=== PATIENT | female | born 1995 | race Two or more races ===

== ENCOUNTER 2025-03-12 01:43 | Emergency (ER) | payer SELFPAY ==
[2025-03-12 01:55] VITALS: BP 126/88
[2025-03-12 02:41] VITALS: BMI 23.4
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
--- NOTE | 2025-03-12 05:04 | ED.MUSCINJ ---
HPI-Injury
General
Chief Complaint: Fall
Time Seen by Provider: 03/12/25 03:27
History of Present Illness-Injury
Initial Injury comments:
Note:
CHIEF COMPLAINT(S)
Head injury from fall
HISTORY OF PRESENT ILLNESS
The patient is a 29-year-old female who presented to the emergency department after sustaining a fall. The patient reports experiencing the fall while putting on socks. The fall resulted in her landing on her face. She reports being scared and
experiencing a headache but denies any blurry vision. During the encounter, the patient confirmed consuming alcohol prior to the fall.
PLAN
A CT scan of the patients head, neck, and face will be performed to assess for any potential injuries arising from the fall.
PHYSICAL EXAM
General: Patient is responsive and alert.
Skin: No visible external injuries reported in the conversation.
Details regarding specific findings within systems such as neurological or musculoskeletal were not discussed in the provided conversation.
DIFFERENTIAL DIAGNOSIS
The Differential Diagnosis includes, in no particular order and is not limited to:
1. Acute alcohol intoxication
2. Concussion
3. Facial fracture
4. Intracranial hemorrhage
5. Cervical spine injury
6. Postural instability
7. Epileptic seizure
8. Hyponatremia due to alcohol consumption
9. Vestibular dysfunction
10. Orthostatic hypotension
Disposition:
SUMMARY OF ENCOUNTER
The patient is a 29-year-old female who presented to the emergency department after experiencing a fall due to alcohol consumption. She landed on her face but did not lose consciousness and reported no blurry vision or loose teeth. A CT scan was
done to evaluate potential head, face, and neck injuries, which returned negative except for noting chronic dental disease.
DISPOSITION
Discharge
ASSESSMENT
The fall appears to have been caused by acute alcohol intoxication, with no serious injuries identified after imaging.
PLAN
The patient is to be discharged home with her significant other.
INDEPENDENT REVIEW OF LABS AND INTERPRETATION OF TESTS
- My independent interpretation of the CT scan of the head showed no acute injuries.
- My independent interpretation of the CT scan of facial bones was negative for fractures.
- My independent interpretation of the CT scan of the cervical spine showed no injury.
PATIENT EDUCATION AND COUNSELING
The patient was informed about the importance of avoiding alcohol consumption, especially in situations that might lead to falls or injuries.
FOLLOW-UP INSTRUCTIONS
The patient should follow up with a primary care doctor to monitor chronic dental disease and assess any progression.
MEDICAL DECISION MAKING
- Complexity of Data Reviewed: Chronic conditions affecting care include the patients chronic dental disease. Differential Diagnosis includes acute alcohol intoxication, concussion, facial fracture, intracranial hemorrhage, cervical spine injury,
postural instability, epileptic seizure, hyponatremia due to alcohol consumption, vestibular dysfunction, and orthostatic hypotension.
- Data: Category 1: Non-emergency department records reviewed validated the patients chronic dental disease as noted on the CT scan.
- Risk: Consideration of Admission/Observation: Escalation of care including admission/observation was considered given the complexity and risk of the patients presenting complaint, exam findings, and/or their underlying comorbidities. However,
ultimately I feel the patient is safe for outpatient management with close follow up. Reasoning: Work-up reassuring, does not reveal any acute life/organ threatening processes, patients symptoms well controlled upon reevaluation, reexamination is
reassuring, vitals are stable, patient agreeable with discharge, reliable for follow-up.
DIAGNOSIS
- Acute alcohol intoxication (F10.120)
- Fall due to intoxication (W19)
- Chronic dental disease (K08.9)
Phy Exam
Physical Exam
Physical Exam:
.
Injury Course
Orders/Labs/Results
Orders:
Orders
03/12/25 03:34
CT Cervical Spine W/o Iv Contr Urgent
Comment:
Reason For Exam: fall, (+)ETOH, Sig fac trauma
CT Facial Bones W/o Iv Contras Urgent
Comment:
Reason For Exam: fall, (+)ETOH, Sig fac trauma
CT Head W/o Iv Contrast Urgent
Comment:
Reason For Exam: fall, (+)ETOH, Sig fac trauma
*Pulse Oximetry
SaO2: 96
Oxygen Mode of Delivery: Room air
Patient hypoxic: no
*Critical Care Note
Total Time (30-74mins, 75-104mins- exclusive of procedures): Not Applicable
Update Note
Update Note:
NAME: ULICES MCCOY
DATE OF EXAM: 03/12/2025
Patient No: [id number]
Physician: RITESH
Date of : 1995
Past Medical History (entered by Technologist):
Reason For Exam (entered by Technologist):
Other Notes (entered by Technologist): Pt tripped and hit her face on cement. Pt with abrasions to her face.
No prior
Additional Information (per Vision Radiologist):
CT head, face, and C-spine without IV contrast
IMPRESSION:
CT HEAD: Right frontal scalp contusion without underlying calvarial fracture or acute intracranial abnormality.
CT FACE: No acute osseous trauma. Paranasal sinuses and mastoid air cells clear. TMJs are intact. Orbits intact. Dental disease for which outpatient dental consultation is advised.
CT CERVICAL SPINE: No acute osseous trauma. Alignment intact. Craniocervical junction normal. Vertebral body heights and disc spaces are preserved.
Case finalized on 03/12/25 04:27 EDT
Yasmani Salinas M.D.
This report has been electronically signed and verified by the Radiologist whose name is printed above.
ED Attending Note
-
Portions of this chart may have been created with voice recognition software.� Occasional wrong word or��sound alike� substitutions may have occurred due to the inherent limitations of voice recognition software.
Discharge Plan
Departure
Patient Disposition: Home (Routine Discharge)
Date of Disposition: 03/12/25
Time of Disposition: 05:06
Patient with high blood pressure during this ER visit?: Yes
Condition: Good
Discharge Problem:
Abrasion, Fall
Instructions: BLOOD PRESSURE, Skin Abrasions (DC), Wound Care (DC)
Prescriptions:
No Action
escitalopram oxalate [Lexapro] 10 mg Tablet
10 mg PO DAILY
Referrals:
UNKNOWN - PT DOES,NOT KNOW [Family Provider]
[facility] [Outside] - As needed
[facility] [Outside]
Activity Restrictions/Additional Instructions:
Your CAT scan shows nonspecific dental disease. Please follow-up with a dentist at your earliest convenience.
Thank You for choosing [facility].
It was a pleasure meeting you and taking part in your care. We hope for your continued healing and wellness.
Please read discharge instructions in their entirety. However, they are for general education and may not describe your exact diagnosis at discharge. Information on your ER visit and medical conditions were discussed with you along with appropriate
follow up information...
If indicated, please take your medications as instructed and indicated on discharge paperwork.
Please schedule a follow up appointment as directed. Call to schedule an appointment
Please return to the emergency department with ANY change in, persisting, or worsening of symptoms. If any of your symptoms do not improve, or persist, or become more severe within 6-12 hours, please return to the emergency department for further
care.
Please return to the emergency department if you develop a headache, neck pain/stiffness, fever greater than 100.4F, chest pain, shortness of breath, persistent nausea, vomiting, slurred speech, difficulty walking, numbness/tingling, weakness, signs
of infection or any other symptoms that are worrisome to you.
If you have any questions or concerns please do not hesitate to call the Hospital at .
Interventions
Interventions:
*Risk Screen - Suicide Last Done: 03/12/25 01:55
*General Assessment Last Done: 03/12/25 01:55
*Neglect/Abuse Screening Last Done: 03/12/25 01:55
*ED- Fall Risk Assessment Last Done: 03/12/25 02:41
*ED COVID-19 Vaccine History Last Done: 03/12/25 02:41
*ED Influenza Vaccine History Last Done: 03/12/25 02:41
ED-Musculoskeletal Assessment Last Done: 03/12/25 02:41
ED- Neurological Assessment Last Done: 03/12/25 02:41
ED-Skin Assessment Last Done: 03/12/25 02:41
Discharge Date and Time
Print Language: SINHALA
[2025-03-12 05:09] VITALS: BP 120/80
== END 2025-03-12 05:38 | disposition home or self-care (01) ==
LOC: EMR 01:43
PROVIDERS: EMERGENCY PHYSICIAN Student in an Organized Health Care Education/Training Program
DX: S00.81XA Abrasion of other part of head, initial encounter (principal); W01.198A Fall on same level from slipping, tripping and stumbling with subsequent striking against other object, initial encounter; Y93.01 Activity, walking, marching and hiking; R03.0 Elevated blood-pressure reading, without diagnosis of hypertension
CPT/HCPCS: 99284; 70450; 70486; 72125